=== PATIENT | female | born 1990 | race Caucasian/White ===

== ENCOUNTER 2017-06-09 05:10 | Inpatient (IN) | payer MEDICAID ==
[~2017-06-09] VITALS: Ht 167.6 cm; Wt 94.5 kg
[2017-06-09] MEDS ORDERED: NEWBORN KIT ONE (05:29)
[2017-06-09] MEDS ORDERED: MISOPROSTOL 200 MCG TABLET ONE (05:29)
[2017-06-09] MEDS ORDERED: LIDOCAINE 1%, 20ML ONE (05:29)
[2017-06-09] MEDS ORDERED: OXYTOCIN 30U/ 0.9% NaCL 500ML 500 ML ONE (05:29)
[2017-06-09] MEDS: LACTATED RINGERS 1,000 ML IV SCH ×2 (05:30→10:27)
[2017-06-09] MEDS ORDERED: OXYTOCIN 30U/ 0.9% NaCL 500ML 500 ML IV PRN (05:36)
[2017-06-09] MEDS ORDERED: OXYTOCIN 30U/ 0.9% NaCL 500ML 500 ML IV ONE (05:36)
[2017-06-09] MEDS ORDERED: FENTANYL PF 100 MCG/2ML IVPush PRN (06:00)
[2017-06-09] MEDS ORDERED: ONDANSETRON 2MG/ML, 2ML IVPush PRN (06:00)
[2017-06-09] MEDS ORDERED: FENTANYL PF 100 MCG/2ML IV PRN (06:00)
[2017-06-09] MEDS ORDERED: TERBUTALINE 1 MG/ML, 1ML IVPush PRN (06:00)
[2017-06-09 06:01] LABS: HEMATOCRIT 31.9 % (34.6-47.8); HEMOGLOBIN 10.6 g/dL (11.7-16.4); WHITE BLOOD COUNT 11.1 x10^3/uL (3.4-10)
[2017-06-09] MEDS: D5%-LACTATED RINGERS 1,000 ML IV SCH ×2 (06:08→14:08)
[2017-06-09 06:14] VITALS: BP_SYST 121
[2017-06-09] MEDS ORDERED: GLYB5TAB3 PO (06:26)
[2017-06-09] MEDS ORDERED: SODIUM CITRATE/CITRIC ACID 30 ML UDC PO PRN (06:30)
[2017-06-09] MEDS ORDERED: CALCIUM CARBONATE 500 MG TAB.CHEW PO PRN ×2 (06:30→16:00)
[2017-06-09] MEDS ORDERED: FENTANYL PF 100 MCG/2ML ONE (09:24)
[2017-06-09] MEDS ORDERED: LACTATED RINGERS 1,000 ML IV SCH (10:48)
[2017-06-09] MEDS ORDERED: FENTANYL/BUPIV./NS/PF 250 ML EPIDCONT SCH (10:48)
[2017-06-09] MEDS ORDERED: FENTANYL/BUPIV./NS/PF 250 ML EPIDCONT ONE ×2 (10:50→11:10)
[2017-06-09] MEDS ORDERED: BUPIVACAINE/PF 0.25% ONE (10:50)
[2017-06-09] MEDS ORDERED: LACTATED RINGERS 1,000 ML IVBOLUS PRN (11:00)
[2017-06-09] MEDS ORDERED: EPHEDRINE 50 MG/ML, 1ML IVPush PRN (11:00)
[2017-06-09] MEDS ORDERED: NALOXONE 0.4 MG/ML, 1ML IVPush PRN (11:00)
[2017-06-09] MEDS ORDERED: BUPIVACAINE 0.25% ONE (11:10)
[2017-06-09] MEDS ORDERED: TERBUTALINE 1 MG/ML, 1ML ONE (14:42)
[2017-06-09] MEDS: OXYTOCIN 30U/ 0.9% NaCL 500ML 500 ML IV SCH ×5 (15:36→21:20)
[2017-06-09] MEDS ORDERED: OXYTOCIN 30U/ 0.9% NaCL 500ML 500 ML IV SCH (15:36)
[2017-06-09] MEDS ORDERED: BISACODYL 10 MG SUPP PR PRN (16:00)
[2017-06-09] MEDS ORDERED: ONDANSETRON 2MG/ML, 2ML IV PRN (16:00)
[2017-06-09] MEDS ORDERED: MISOPROSTOL 200 MCG TABLET PR PRN (16:00)
[2017-06-09] MEDS ORDERED: ACETAMINOPHEN 325 MG TABLET PO PRN ×2 (16:00)
[2017-06-09] MEDS ORDERED: METHYLERGONOVINE 0.2 MG/ML IM PRN (16:00)
[2017-06-09 18:15] VITALS: BP 115/64
[2017-06-09] MEDS: HYDROcodone/APAP 5/325 TABLET PO PRN ×2 (18:22→22:36)
[2017-06-09] MEDS: DOCUSATE 100 MG CAPSULE PO PRN ×2 (18:22→22:36)
[2017-06-09] MEDS: IBUPROFEN 600 MG TABLET PO PRN (18:22)
[2017-06-09 22:15] VITALS: BP 110/61
[2017-06-09 23:35] LABS: HEMATOCRIT 25.8 % (34.6-47.8); HEMOGLOBIN 8.8 g/dL (11.7-16.4); WHITE BLOOD COUNT 12.4 x10^3/uL (3.4-10)
[2017-06-10 00:30] VITALS: BP 118/65
[2017-06-10] MEDS: HYDROcodone/APAP 5/325 TABLET PO PRN ×4 (04:00→16:29)
[2017-06-10 04:30] VITALS: BP 111/76
[2017-06-10 07:05] VITALS: BP 98/54
[2017-06-10] MEDS: PRENATAL VIT/IRON/FA 1 EACH TABLET PO SCH (08:40)
[2017-06-10] MEDS: IBUPROFEN 600 MG TABLET PO PRN ×2 (08:40→15:10)
[2017-06-10] MEDS: DOCUSATE 100 MG CAPSULE PO PRN ×2 (08:40→22:32)
[2017-06-10 11:57] VITALS: BP 107/57
[2017-06-10 16:30] VITALS: BP 112/67
[2017-06-10] MEDS ORDERED: FERROUS GLUCONATE 324 MG TABLET PO SCH (17:00)
[2017-06-10 20:15] VITALS: BP 116/83
[2017-06-11] MEDS: IBUPROFEN 600 MG TABLET PO PRN ×2 (00:27→09:47)
[2017-06-11] MEDS: HYDROcodone/APAP 5/325 TABLET PO PRN ×2 (05:12→09:47)
[2017-06-11 07:45] VITALS: BP 107/59
[2017-06-11] MEDS: DOCUSATE 100 MG CAPSULE PO PRN (09:47)
[2017-06-11] MEDS: PRENATAL VIT/IRON/FA 1 EACH TABLET PO SCH (09:47)
[2017-06-11] MEDS ORDERED: HYDR1TAB12 PO (10:41)
[2017-06-11] MEDS ORDERED: IBUP-1222 PO (10:42)
[2017-06-11] MEDS ORDERED: DOCU-131 PO (10:42)
[2017-06-11] MEDS ORDERED: FERG (10:45)
[2017-06-11] MEDS ORDERED: FERR270T PO (10:49)
== END 2017-06-11 11:50 | disposition home or self-care (01) | DRG 775 ==
LOC: LDIP 05:10 → 2NW 17:18
PROVIDERS: ADMIT Obstetrics & Gynecology; ATTEND Obstetrics & Gynecology
PROC: 10E0XZZ Delivery of Products of Conception, External Approach (ICD-10-PCS; principal; 2017-06-09)
PROC: 0KQM0ZZ Repair Perineum Muscle, Open Approach (ICD-10-PCS; 2017-06-09)
PROC: 10907ZC Drainage of Amniotic Fluid, Therapeutic from Products of Conception, Via Natural or Artificial Opening (ICD-10-PCS; 2017-06-09)
PROC: 3E033VJ Introduction of Other Hormone into Peripheral Vein, Percutaneous Approach (ICD-10-PCS; 2017-06-09)
PROC: 3E0S3CZ (ICD-10-PCS; 2017-06-09)
PROC: 00HU33Z Insertion of Infusion Device into Spinal Canal, Percutaneous Approach (ICD-10-PCS; 2017-06-09)
DX: O24.429 Gestational diabetes mellitus in childbirth, unspecified control (principal); O99.344 Other mental disorders complicating childbirth; F32.9 Major depressive disorder, single episode, unspecified; F17.210 Nicotine dependence, cigarettes, uncomplicated; Z37.0 Single live birth; O69.1XX0 Labor and delivery complicated by cord around neck, with compression, not applicable or unspecified; O90.81 Anemia of the puerperium; O99.334 Smoking (tobacco) complicating childbirth; O76 Abnormality in fetal heart rate and rhythm complicating labor and delivery; O70.1 Second degree perineal laceration during delivery; Z82.3 Family history of stroke; Z82.49 Family history of ischemic heart disease and other diseases of the circulatory system; Z83.3 Family history of diabetes mellitus; Z3A.39 39 weeks gestation of pregnancy; Z90.49 Acquired absence of other specified parts of digestive tract; Z88.2 Allergy status to sulfonamides
CPT/HCPCS: 36415; 82803; 82962; 85025; 86850; 86900; J3010; J3490; J2590; J3105; J7120